=== PATIENT | male | born 1980 | race Caucasian/White ===

== ENCOUNTER 2017-03-12 17:34 | Emergency (ER) | payer SELFPAY ==
[~2017-03-12] VITALS: Ht 180.3 cm; Wt 101.0 kg
[2017-03-12 17:42] VITALS: BP 141/83; PULSE 82; RESP 19; TEMP 98.5; O2SAT 96
[2017-03-12] MEDS ORDERED: ONDANSETRON HCL 4 MG/2 ML VIAL IV PUSH ONE (18:00)
[2017-03-12] MEDS ORDERED: KETOROLAC TROMETHAMINE 30 MG/ML (IVP) VIAL IVP ONE (18:00)
[2017-03-12] MEDS ORDERED: TETANUS/DIPHTHERIA TOXOID ADULT 0.5 ML VIAL IM ONE (18:00)
[2017-03-12] MEDS ORDERED: MORPHINE SULFATE 4 MG/ML INJ IV PUSH ONE (18:00)
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
[2017-03-12] MEDS ORDERED: HYDR-3533 PO (19:07)
[2017-03-12] MEDS ORDERED: DICL75TA PO (19:07)
[2017-03-12] MEDS ORDERED: BACT800T5 PO (19:07)
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
== END 2017-03-12 20:54 | disposition home or self-care (01) ==
LOC: NEPD 17:34
DX: S80.212A Abrasion, left knee, initial encounter (principal); S40.012A Contusion of left shoulder, initial encounter; V13.4XXA Pedal cycle driver injured in collision with car, pick-up truck or van in traffic accident, initial encounter; Y93.55 Activity, bike riding; Z23 Encounter for immunization
CPT/HCPCS: 70450; 71010; 73030; 73552; 73564; 90471; 90714; 96374; 96375; 99285; E0113; J1885; J2270; J2405; L1830

== ENCOUNTER 2017-10-24 15:26 | Emergency (ER) | payer SELFPAY ==
[~2017-10-24] VITALS: Ht 180.3 cm; Wt 112.0 kg
[~2017-10-24 15:26] MED LIST: BACT800T5 PO; DICL75TA PO; HYDR-3533 PO
[2017-10-24 15:54] VITALS: BP 141/91; PULSE 98; RESP 16; TEMP 98.5; O2SAT 98
[2017-10-24] MEDS ORDERED: BENZ100 PO (16:25)
[2017-10-24] MEDS ORDERED: PRED20 PO (16:25)
--- NOTE | 2017-10-24 16:35 | PD ---
HPI Chief Complaint: Skin Problem Time Seen by Provider: 16:20 Travel History International Travel<30 days: No Contact w/Intl Traveler<30days: No Traveled to known affect area: No History of Present Illness HPI 37-year-old male presents for evaluation. For the past few days he's been having a rash on his right arm and hand. Now today he developed a similar rash on his forehead and cheeks. Burning sensation which is worse with palpation. He had some itching yesterday but that resolved. He is also had a dry cough for the past few days. Denies fevers, chills, congestion, sore throat. 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 He denies any unusual contact to new chemicals, creams, lotions, detergents. He has no other complaints. [facility] Past Medical History Asthma: Yes Bipolar Disorder: Yes Anxiety: Yes Heart Rhythm Problems: Yes Diabetes: No Diminished Hearing: No Reproductive: Yes (VASECTOMY) Integumentary: Yes (SKIN GRAFTS) Immunizations Current: Yes Schizophrenia: Yes Tetanus Vaccination: < 5 Years Social History Alcohol Use: Yes (BEER) Tobacco Use: No Substance Use: Yes Allergies-Medications (Allergen,Severity, Reaction): Coded Allergies: haloperidol (Unverified Adverse Reaction, Intermediate, Insomnia, 05/10/17) STATES AWAKE FOR DAYS Uncoded Allergies: PRINCESSMELLOWS (Allergy, Severe, 02/24/14) Reported Meds & Prescriptions Reported Meds & Active Scripts Active Tessalon Perles (Benzonatate) 100 Mg Cap 200 Mg PO TID PRN Prednisone 20 Mg Tab 20 Mg PO BID 5 Days Review of Systems Except as stated in HPI: all other systems reviewed are Neg Physical Exam Narrative GENERAL: Well-developed well-nourished male in no acute distress SKIN: Warm and dry. Scattered papular lesions noted on the face, right arm and hand. No vesicles, no pustules, no petechiae, no purpura, no hives HEAD: Atraumatic. Normocephalic. EYES: Pupils equal and round. No scleral icterus. No injection or drainage. ENT: No nasal bleeding or discharge. Mucous membranes pink and moist. NECK: Trachea midline. No JVD. CARDIOVASCULAR: Regular rate and rhythm. No murmur appreciated. RESPIRATORY: No accessory muscle use. Clear to auscultation. Breath sounds equal bilaterally. GASTROINTESTINAL: Abdomen soft, non-tender, nondistended. Hepatic and splenic margins not palpable. MUSCULOSKELETAL: No obvious deformities. No clubbing. No cyanosis. No edema. NEUROLOGICAL: Awake and alert. No obvious cranial nerve deficits. Motor grossly within normal limits. Normal speech. PSYCHIATRIC: Appropriate mood and affect; insight and judgment normal. Data Data Last Documented VS Vital Signs Date Time Temp Pulse Resp B/P (MAP) Pulse Ox O2 Delivery O2 Flow Rate FiO2 10/24/17 15:54 98.5 98 16 141/91 (108) 98 MDM Medical Decision Making Medical Screen Exam Complete: Yes Emergency Medical Condition: Yes Medical Record Reviewed: Yes Differential Diagnosis Allergic contact dermatitis, irritant contact dermatitis, viral exanthem, SLE, scabies, bug bites Narrative Course 37-year-old male with rash in the face and right arm for the past few days. Unclear etiology but most likely due to diagnosis irritant contact dermatitis. He will be discharged with a short course of prednisone. He'll be given Tessalon for his cough. Diagnosis Primary Impression: Rash Additional Impression: Cough Additional Instructions: Medication as prescribed. Avoid tobacco products. Follow-up with primary care physician and return for any emergent medical conditions. Med/Other Pt SpecificInfo: Prescription(s) given Scripts Benzonatate (Tessalon Perles) 100 Mg Cap 200 MG PO TID Y for COUGH, #20 CAP 0 Refills Prov: Haylee Rubio MD 10/24/17 Prednisone (Prednisone) 20 Mg Tab 20 MG PO BID for 5 Days, #10 TAB 0 Refills Prov: Haylee Rubio MD 10/24/17 Disposition: 01 DISCHARGE HOME Condition: Stable Kenneth Barrett Oct 24, 2017 16:35
== END 2017-10-24 16:51 | disposition home or self-care (01) ==
LOC: PHEFT 15:26
DX: R21 Rash and other nonspecific skin eruption (principal); R05 Cough; F20.9 Schizophrenia, unspecified; F31.9 Bipolar disorder, unspecified; F41.9 Anxiety disorder, unspecified; J45.909 Unspecified asthma, uncomplicated
CPT/HCPCS: 99284